=== PATIENT | female | born 1960 | race Caucasian/White ===

== ENCOUNTER 2024-04-19 08:39 | Observation (INO) ==
[2024-04-19] MEDS: BRIDION ONE (09:29)
--- NOTE | 2024-04-19 09:40 | DR.EXTPAIN ---
HPI Time seen Time Seen by Provider: 04/19/24 09:39 Complaint/Symptoms Chief Complaint:: Patient was ambulatory with crutch on wet service and it slipped causing her to fall forward. Patient has hx of CVA with right side hemiplegia. She complains of pain right ankle with movement. Her states she has been complaining pain prior to fall. She has abrasion to right flank COVID-19 Coronavirus risk:travel/contact w/high risk person: No Has patient experienced Coronavirus symptoms: No Source History Provided: Patient Mode of arrival Mode of Arrival: EMS Timing Onset of Chief Complaint: 04/19/24 PMH PMH Past Medical History: Yes Past Medical History: CVA, Diabetes, Dyslipidemia and Hypertension Past Surgical History: No Surgical History: Unknown Family History History of Family Medical Conditions: Yes Family Medical History: Cancer and Hypertension Social History Does patient currently use any type of tobacco product: No Have you used tobacco products in the last 12 months: No Type of Tobacco Use: None Does any household member use tobacco: No Alcohol Use: None Do you use any recreational Drugs:: No Lives With: Spouse Lives Where: Home Travel Risk Coronavirus risk:travel/contact w/high risk person: No Has patient experienced Coronavirus symptoms: No Infectious screening In the last 2 months have you had wt loss of >10#?: NO Have you had fever, night sweats or hemotysis?: No Have you traveled outside the country in the last 6 months?: No Isolation: Standard PE Vital Signs Vitals: Vital Signs Temperature 98.1 F Pulse Rate 66 Pulse Rate 67 Pulse Rate 65 Pulse Rate 66 Pulse Rate 64 Pulse Rate 65 Pulse Rate 64 Pulse Rate 64 Pulse Rate 64 Pulse Rate 63 Pulse Rate 62 Pulse Rate 82 Respiratory Rate 27 Respiratory Rate 24 Respiratory Rate 22 Respiratory Rate 33 Respiratory Rate 25 Respiratory Rate 21 Respiratory Rate 22 Respiratory Rate 20 Respiratory Rate 20 Respiratory Rate 17 Respiratory Rate 23 Respiratory Rate 17 Respiratory Rate 17 Blood Pressure 147/63 Blood Pressure 140/60 Blood Pressure 161/65 Blood Pressure 128/60 Blood Pressure 135/55 Blood Pressure 117/58 Blood Pressure 117/58 Blood Pressure 161/68 Blood Pressure 104/59 O2 Sat by Pulse Oximetry 100 O2 Sat by Pulse Oximetry 100 O2 Sat by Pulse Oximetry 100 O2 Sat by Pulse Oximetry 100 O2 Sat by Pulse Oximetry 100 O2 Sat by Pulse Oximetry 100 O2 Sat by Pulse Oximetry 100 O2 Sat by Pulse Oximetry 100 O2 Sat by Pulse Oximetry 100 O2 Sat by Pulse Oximetry 100 O2 Sat by Pulse Oximetry 100 O2 Sat by Pulse Oximetry 98 [facility] Reviewed 04/24/24 06:00 04/24/24 06:00 Laboratory: WBC 12.4 X10^3/uL (3.6-10.0) H 04/19/24 12:35 RBC 4.10 X10^6/uL (3.5-5.4) 04/19/24 12:35 Hgb 10.8 g/dL (12.0-16.0) L 04/19/24 12:35 Hct 33.4 % (36.0-47.0) L 04/19/24 12:35 MCV 81.4 fL (80.0-100.0) 04/19/24 12:35 MCH 26.2 pg (27.0-34.0) L 04/19/24 12:35 MCHC 32.2 g/dL (33.0-35.0) L 04/19/24 12:35 RDW 16.8 % (11.6-16.5) H 04/19/24 12:35 Plt Count 288 X10^3/uL (150.0-450.0) 04/19/24 12:35 MPV 8.4 fL (7.4-11.0) 04/19/24 12:35 Neut % (Auto) 88.0 % (42.0-75.0) H 04/19/24 12:35 Lymph % (Auto) 5.2 % (21.0-51.0) L 04/19/24 12:35 Swain % (Auto) 6.3 % (0.0-13.0) 04/19/24 12:35 Eos % (Auto) 0.1 % (0.9-2.9) L 04/19/24 12:35 Baso % (Auto) 0.4 % (0.2-1.0) 04/19/24 12:35 Neut # (Auto) 10.9 x10^3/uL (2.2-4.8) H 04/19/24 12:35 Lymph # (Auto) 0.6 X10^3/uL (1.3-2.9) L 04/19/24 12:35 Swain # (Auto) 0.8 x10^3/uL (0.3-0.8) 04/19/24 12:35 Eos # (Auto) 0.0 x10^3/uL (0.0-0.2) 04/19/24 12:35 Baso # (Auto) 0.0 X10^3/uL (0.0-0.1) 04/19/24 12:35 Absolute Nucleated RBC 0.0 /100WBC 04/19/24 12:35 Sodium 140 mmol/L (136-145) 04/19/24 12:35 Corrected Sodium 142 mmol/L (136-145) 04/19/24 12:35 Potassium 4.8 mmol/L (3.5-5.1) 04/19/24 12:35 Chloride 101 mmol/L (98-107) 04/19/24 12:35 Carbon Dioxide 28.9 mmol/L (21-32) 04/19/24 12:35 BUN 22 mg/dL (7-18) H 04/19/24 12:35 Creatinine 0.94 mg/dL (0.55-1.02) 04/19/24 12:35 Est GFR (MDRD) Af Amer > 60 (>60) 04/19/24 12:35 Est GFR (MDRD) Non-Af > 60 (>60) 04/19/24 12:35 Glucose 176 mg/dL (65-99) H 04/19/24 12:35 Hemoglobin A1c 7.2 % 04/19/24 12:55 Calcium 9.4 mg/dL (8.5-10.1) 04/19/24 12:35 Opioid Opioid Risk Tool Age (Baldemar box if 16-45): No History of Preadolescent Sexual Abuse: No Total: 0 Total Score Risk Category: Low Risk Copyright: Lawrence COSBY predicting aberrant behaviors Discharge Plan Diagnosis Discharge Problem: Fracture dislocation of right ankle, Contusion of head and neck region, Contusion of face, Cervical strain, acute, Right sided weakness Discharge Plan Patient Disposition: 09 ADMITTED INPATIENT Condition: Stable Orders to Discharge Patient Discharge Orders: Discharge (Routine); Ordered 04/23/24 Ordered By: HONEY BLACKMON
--- NOTE | 2024-04-19 09:43 | CT ---
EXAM: CT HEAD WITHOUT CONTRAST HISTORY: ambulatory with crutch on wet service and it slipped causing her to fall forward. Patient has hx of C VA with right side hemiplegia; COMPARISON: None. TECHNIQUE: Axial CT images were obtained through the brain without contrast. All CT scans at this facility use dose modulation, iterative reconstruction, and/or weight based dosi ng when appropriate to reduce radiation dose to as low as reasonably achievable. FINDINGS: BRAIN: Encephalomalacia demonstrated in the left temporal lobe. No evidence of acute intracranial he morrhage. No intra or extra-axial fluid collections CALVARIUM: Normal ADDITIONAL FINDINGS: The visualized paranasal sinuses and mastoid air cells are clear. Orbits are graeme ssly unremarkable. IMPRESSION: No acute intracranial abnormality. Previous encephalomalacia in the left temporal lobe likely from p revious infarct THIS IS AN ELECTRONICALLY VERIFIED FINAL REPORT 04/19/2024 9:38 AM - Electronically signed by Sabas Davidson MD
--- NOTE | 2024-04-19 09:43 | CT ---
EXAMINATION:CERVICAL SPINE W/O CONHISTORY:ambulatory with crutch on wet service and it slipped causing her to fall forward. Patient has hx of CVA with right side hemiplegia;COMPARISON:None.TECHNIQUE:Con tiguous noncontrast axial CT images cervical spine. Images reviewed in the axial imaging plane with reformatted sagittal and coronal images.The above CT scan was done with automated exposure control and the mA and kV was adjusted to obtain quality images according to patient size.FINDINGS:No evidence of acute traumatic displaced fracture or significant subluxation. There is straightening of the cervical spine with loss of the normal lordotic curvature. Consider muscle spasm, patient positioning. Precervical soft tissues appear normal.Multilevel degenerative changes with [id number] disc space narrowing, vertebral endplate osteophytes, narrowing of the uncovertebral joints.IMPRESSION:Diffuse cervical spondylosis.Nonspecific straightening of the cervical spine with loss of the normal lordotic curvature. Consider muscle spasm, patient positioning.THIS IS AN ELECTRONICALLY VERIFIED FINAL [id number]/19/2024 9:40 AM - Electronically signed by Marilou Laureano MD
--- NOTE | 2024-04-19 09:43 | CT ---
EXAM:CT MAXILLOFACIAL WITHOUT CONTRASTHISTORY:ambulatory with crutch on wet service and it slipped causing her to fall forward. Patient has hx of CVA with right side hemiplegia; .COMPARISON:None.TECHNIQUE:Axial CT images were obtained through the face without contrast. Orthogonal reformations were post processed.All CT scans at this facility use dose modulation, iterative reconstruction, and/or weight based dosing when appropriate to reduce radiation dose to as low as reasonably achievable.FINDINGS:FACIAL BONES: No displaced fractures.ORBITS: No evidence of orbital hematoma.PARANASAL SINUSES: Well-aerated.SOFT TISSUES: No evidence of focal soft tissue swelling.IMPRESSION:No evidence of facial fracture or orbital injuryTHIS IS AN ELECTRONICALLY VERIFIED FINAL [id number]/19/2024 9:39 AM - Electronically signed by Sabas Davidson MD
[2024-04-19] MEDS ORDERED: CARDIZEM INJ 125 MG VIAL 125 MG in NS 100 ML IV 100 ML IV PRN (09:52)
[2024-04-19] MEDS: CARDIZEM INJ 50 MG VIAL IVP ONE (09:54)
[2024-04-19] MEDS: TYLENOL 500 MG TAB EXTRA STRENGTH PO ONE (10:35)
--- NOTE | 2024-04-19 11:31 | RAD ---
EXAM:ANKLE, RIGHTHISTORY:TRAUMA;COMPARISON:None FINDINGS:Two viewsFracture/dislocation is present. This at least involves the medial malleolus and probably the lateral malleolus. I am not certain about the posterior tibial malleolus. The talus is dislocated posteriorly.Diffuse soft tissue edema is noted.IMPRESSION:1. Fracture/dislocation tibiotalar jointTHIS IS AN ELECTRONICALLY VERIFIED FINAL [id number]/19/2024 11:28 AM - Electronically signed by Sixto London MD
--- NOTE | 2024-04-19 12:29 | EKG ---
Test Reason : preop Blood Pressure : */* mmHG Vent. Rate : 64 BPM Atrial Rate : 64 BPM P-R Int : 146 ms QRS Dur : 98 ms QT Int : 432 ms P-R-T Axes : 38 82 48 degrees QTc Int : 445 ms Normal sinus rhythm Normal ECG No previous ECGs available Confirmed by Aron Jacobson MD ([id number]) on 04/19/2024 12:30:17 PM Referred By: Confirmed By: Aron Jacobson MD
[2024-04-19 12:42] LABS: BASOPHILS % (AUTO) 0.4 % (0.2-1.0); EOSINOPHILS % (AUTO) 0.1 % (0.9-2.9); HEMATOCRIT 33.4 % (36.0-47.0); HEMOGLOBIN 10.8 g/dL (12.0-16.0); LYMPHOCYTES # (AUTO) 0.6 X10^3/uL (1.3-2.9); LYMPHOCYTES % (AUTO) 5.2 % (21.0-51.0); MEAN CORPUSCULAR HEMOGLOBIN 26.2 pg (27.0-34.0); MEAN CORPUSCULAR HGB CONC 32.2 g/dL (33.0-35.0); MEAN CORPUSCULAR VOLUME 81.4 fL (80.0-100.0); MEAN PLATELET VOLUME 8.4 fL (7.4-11.0); MONOCYTES # (AUTO) 0.8 x10^3/uL (0.3-0.8); MONOCYTES % (AUTO) 6.3 % (0.0-13.0); NEUTROPHILS # (AUTO) 10.9 x10^3/uL (2.2-4.8); PLATELET COUNT 288 X10^3/uL (150.0-450.0); RED CELL DISTRIBUTION WIDTH 16.8 % (11.6-16.5); WHITE BLOOD COUNT 12.4 X10^3/uL (3.6-10.0)
--- NOTE | 2024-04-19 12:42 | CT ---
EXAM:CT right ankle without contrastHISTORY:Right ankle fractureCOMPARISON:Plain films same dateFINDINGS:Diffuse soft tissue swelling is present. There is a complex trimalleolar medial posterior fracture dislocation of the right ankle. This includes a large comminuted intra-articular fracture of the medial and posterior malleoli with 10 mm separation of the major fracture fragment. There is a dorsally angulated mildly comminuted fracture of the lateral malleolus with 11.5 mm separation of the major fracture fragments. The talus, subtalar joint and calcaneus appear intact as do the talonavicular and calcaneocuboid joints. Remainder of the tarsal bones and tarsal joints appear normal.IMPRESSION:Complex comminuted intra-articular trimalleolar fracture of the right ankle as described above with resultant posteromedial dislocation of the tibiotalar joint.THIS IS AN ELECTRONICALLY VERIFIED FINAL [id number]/19/2024 12:38 PM - Electronically signed by Curtis Pa MD
[2024-04-19 13:08] LABS: BLOOD UREA NITROGEN 22 mg/dL (7-18); CALCIUM 9.4 mg/dL (8.5-10.1); CARBON DIOXIDE 28.9 mmol/L (21-32); CHLORIDE 101 mmol/L (98-107); COR NA(FOR HYPERGLY) 142 mmol/L (136-145); CREATININE 0.94 mg/dL (0.55-1.02); GLUCOSE 176 mg/dL (65-99); POTASSIUM 4.8 mmol/L (3.5-5.1); SODIUM 140 mmol/L (136-145); eGFR NON BLACK RACES > 60 (>60)
--- NOTE | 2024-04-19 13:53 | RAD ---
EXAM:Right ankle four viewsHISTORY:Postreduction trimalleolar fracture dislocationCOMPARISON:CT right ankle same dateFINDINGS:Position and alignment of the medial, posterior, and lateral malleolar fractures is significantly improved. There is some residual posterior subluxation present. Limits than casted.IMPRESSION:Significant improvement in the position and alignment of the medial, posterior, and lateral malleolar fractures.Significant improvement in the posteromedial dislocation but with some residual posterior displacement of the talus present.THIS IS AN ELECTRONICALLY VERIFIED FINAL [id number]/19/2024 1:51 PM - Electronically signed by Curtis Pa MD
[2024-04-19] MEDS ORDERED: BENADRYL INJ 50 MG VIAL IVP PRN (16:02)
[2024-04-19] MEDS ORDERED: DILAUDID INJ IVP PRN (16:02)
[2024-04-19] MEDS ORDERED: ZOFRAN INJ 4 MG VIAL IVP PRN (16:02)
[2024-04-19] MEDS: NS 1,000 ML IV 1,000 ML ONE ×2 (16:59→18:33)
[2024-04-19] MEDS: DIPRIVAN VIAL 20 ML ONE ×2 (16:59→19:29)
[2024-04-19] MEDS: PEPCID 20 MG VIAL ONE (16:59)
[2024-04-19] MEDS: ZOFRAN INJ 4 MG VIAL ONE ×2 (16:59→20:16)
[2024-04-19] MEDS: REGLAN INJ 10 MG VIAL ONE (16:59)
[2024-04-19] MEDS: VERSED ONE ×2 (17:00→19:29)
[2024-04-19] MEDS: ANCEF VIAL 1 GRAM ONE (18:33)
[2024-04-19] MEDS: BETADINE SOLN ONE (19:13)
[2024-04-19] MEDS: NS 100 ML IV 100 ML ONE (19:26)
[2024-04-19] MEDS: FENTANYL VIAL INJ 100 mcg ONE (19:29)
[2024-04-19] MEDS: ROBINUL ONE (19:29)
[2024-04-19] MEDS ORDERED: ULTANE GAS IN ONE (19:29)
[2024-04-19] MEDS ORDERED: KETAMINE HCL ONE (19:29)
[2024-04-19] MEDS: ZEMURON 100 MG VIAL ONE (19:29)
[2024-04-19] MEDS ORDERED: XYLOCAINE 2 % (PLAIN) ONE (19:29)
[2024-04-19] MEDS: OFIRMEV IV 1000 MG VIAL 1,000 MG/100 ML VIAL IV ONE (19:29)
[2024-04-19] MEDS: DECADRON INJ ONE ×2 (19:29)
--- NOTE | 2024-04-19 19:31 | DR.CONSULT ---
CONSULT Consultation for Day of: Date: 04/19/24 Chief Complaint Chief Complaint: Broken Ankle, Right Allergies Allergies Allergy/AdvReac Type Severity Reaction Status Date / Time shrimp Allergy Uncoded 02/11/16 16:04 History of Present Illness History of Present Illness: Morbidly obese, diabetic, former smoker, with right sided deficit secondary to history of stroke and cannot communicate well. Has family with her who states she was walking down some steps and her leg gave out. They state she mostly uses the right leg as a peg. She can't move it well. Noted deformity and immediate pain. Came to ER. ER ordered xrays and CT showed trimal/pilon equivalent fracture to right side. Podiatry consulted. Past Medical History Past Medical History: CVA, Diabetes, Dyslipidemia and Hypertension Past Surgical History Surgical History: Unknown Family History Family Medical History: Diabetes Mellitus and Cancer Social History Does patient currently use any type of tobacco product: No Have you used tobacco products in the last 12 months: No Type of Tobacco Use: None Does any household member use tobacco: No Alcohol Use: None Drug Use: None Medications Home Medications: shrimp Allergy (Uncoded 02/11/16 16:04) CONTINUE taking the following medications atorvastatin 20 mg tablet 20 mg PO QPM 04/19/24 [History] lisinopril 20 mg tablet 20 mg PO QDAY 04/19/24 [History] phenytoin sodium extended 100 mg capsule 200 mg PO QDAY 04/19/24 [History] Review of Systems Musculoskeletal: Leg Pain Physical Exam Vital Signs: Vital Signs Temperature 98.1 F Temperature 97.8 F Pulse Rate [Left Radial] 78 Pulse Rate 73 Pulse Rate 65 Pulse Rate 66 Pulse Rate 67 Pulse Rate 65 Pulse Rate 66 Pulse Rate 64 Pulse Rate 65 Pulse Rate 64 Pulse Rate 64 Pulse Rate 64 Pulse Rate 63 Pulse Rate 62 Respiratory Rate 18 Respiratory Rate 22 Respiratory Rate 36 Respiratory Rate 27 Respiratory Rate 24 Respiratory Rate 22 Respiratory Rate 33 Respiratory Rate 25 Respiratory Rate 21 Respiratory Rate 22 Respiratory Rate 20 Respiratory Rate 20 Respiratory Rate 17 Respiratory Rate 23 Blood Pressure [Left Arm] 152/68 Blood Pressure 165/53 Blood Pressure 149/65 Blood Pressure 147/63 Blood Pressure 140/60 Blood Pressure 161/65 Blood Pressure 128/60 Blood Pressure 135/55 Blood Pressure 117/58 Blood Pressure 117/58 O2 Sat by Pulse Oximetry 96 O2 Sat by Pulse Oximetry 99 O2 Sat by Pulse Oximetry 100 O2 Sat by Pulse Oximetry 100 O2 Sat by Pulse Oximetry 100 O2 Sat by Pulse Oximetry 100 O2 Sat by Pulse Oximetry 100 O2 Sat by Pulse Oximetry 100 O2 Sat by Pulse Oximetry 100 O2 Sat by Pulse Oximetry 100 O2 Sat by Pulse Oximetry 100 O2 Sat by Pulse Oximetry 100 O2 Sat by Pulse Oximetry 100 O2 Sat by Pulse Oximetry 100 Cardiovascular: Other (Dopplerable PT and DP on Right. PT sounds monphasic. CFT WNL to all digits. ) Skin: Other (Lower Extremity Edema significant to right leg. No fracture blisters noted. ) Musculoskeletal: Right and Leg (Deformity present that is in varus at the ankle. Tender upon movement of ankle. Significant edema. No fracture blisters noted. ) Plan (1) Trimalleolar fracture of right ankle: Status: Acute Plan: - Reviewed Xray and CT. - Performed closed reduction and manipulation of the right ankle fracture. Obtained post reduction films which showed improved alignment. Placed patient in sugar tong splint to hold deformity. Anesthesia provided sedation. - Patient to OR tonight for external fixator application to right leg with fracture reduction. - Will be NWB to RLE. - Will need DVT Px - Will require outpatient surgery. - Admitted for observation, likely dc home tomorrow.
[2024-04-19] MEDS: MARCAINE 0.25% INJ ONE (19:56)
--- NOTE | 2024-04-19 23:34 | RAD ---
EXAM:FRONTAL VIEW CHEST X-RAYHISTORY:Preoperative chest x-ray for right ankle surgeryCOMPARISON:None.FINDINGS:The re is an opacity along the right paratracheal stripe which measures 43 x 32 mm and could represent a pulmonary mass. There is widening of the mediastinum which measures 13.5 cm. Follow-up with CT chest may be obtained if this is felt to be clinically indicated.The heart size is enlarged.The mediastinum is unremarkable.There is no evidence of pleural effusion or gross pneumothorax.The trachea is midline.IMPRESSION:1. There is an opacity along the right paratracheal stripe which measures 43 x 32 mm and could represent a pulmonary mass.2. There is widening of the mediastinum which measures 13.5 cm. Follow-up with CT chest may be obtained if this is felt to be clinically indicated.3. The heart size is enlarged.Communications: I have requested that the above concerning findings be communicated to the referring physician/clinical team by the support director at the time I signed the report. Documentation of the time in which the call support director communicated this information to the referring physician/clinical team has been detailed in the PACS system.THIS IS AN ELECTRONICALLY VERIFIED FINAL [id number]/19/2024 11:31 PM - Electronically signed by Twin May MD
[2024-04-20] MEDS: NovoLIN R (or HumuLIN R) SUBCUT PRN (05:52)
[2024-04-20 05:59] LABS: BASOPHILS % (AUTO) 0.1 % (0.2-1.0); EOSINOPHILS % (AUTO) 0.1 % (0.9-2.9); HEMATOCRIT 33.9 % (36.0-47.0); HEMOGLOBIN 10.9 g/dL (12.0-16.0); LYMPHOCYTES # (AUTO) 0.5 X10^3/uL (1.3-2.9); LYMPHOCYTES % (AUTO) 4.7 % (21.0-51.0); MEAN CORPUSCULAR HEMOGLOBIN 26.2 pg (27.0-34.0); MEAN CORPUSCULAR HGB CONC 32.2 g/dL (33.0-35.0); MEAN CORPUSCULAR VOLUME 81.4 fL (80.0-100.0); MEAN PLATELET VOLUME 8.9 fL (7.4-11.0); MONOCYTES # (AUTO) 0.5 x10^3/uL (0.3-0.8); MONOCYTES % (AUTO) 4.5 % (0.0-13.0); NEUTROPHILS # (AUTO) 9.5 x10^3/uL (2.2-4.8); NEUTROPHILS % (AUTO) 90.6 % (42.0-75.0); PLATELET COUNT 257 X10^3/uL (150.0-450.0); RED BLOOD COUNT 4.16 X10^6/uL (3.5-5.4); RED CELL DISTRIBUTION WIDTH 16.6 % (11.6-16.5); WHITE BLOOD COUNT 10.5 X10^3/uL (3.6-10.0)
[2024-04-20 06:08] LABS: ALANINE AMINOTRANSFERASE 16 Units/L (12-78); ALBUMIN 2.8 g/dL (3.4-5.0); ALKALINE PHOSPHATASE 130 Units/L (46-116); ASPARTATE AMINO TRANSFERASE 23 Units/L (15-37); BLOOD UREA NITROGEN 17 mg/dL (7-18); CALCIUM 8.8 mg/dL (8.5-10.1); CARBON DIOXIDE 27.9 mmol/L (21-32); CHLORIDE 105 mmol/L (98-107); COR CA(FOR HYPOALB) 9.8 mg/dL (8.5-10.1); COR NA(FOR HYPERGLY) 144 mmol/L (136-145); CREATININE 0.91 mg/dL (0.55-1.02); GLUCOSE 233 mg/dL (65-99); POTASSIUM 4.7 mmol/L (3.5-5.1); SODIUM 141 mmol/L (136-145); TOTAL PROTEIN 7.4 g/dL (6.4-8.2); eGFR NON BLACK RACES > 60 (>60)
[2024-04-20 06:39] LABS: BAND NEUTROPHILS % 3 % (0-10); HYPOCHROMASIA SLIGHT; PLATELET MORPHOLOGY COMMENT NORMAL (NORMAL)
[2024-04-20] MEDS: DILAUDID INJ IVP PRN (08:04)
[2024-04-20] MEDS: NYSTATIN POWDER TOP SCH (08:04)
[2024-04-20] MEDS: ZESTRIL TAB 20 MG PO SCH (09:32)
[2024-04-20] MEDS: PLAVIX PO SCH (09:32)
[2024-04-20] MEDS: GLUCOPHAGE PO SCH (09:32)
[2024-04-20] MEDS: ASPIRIN PO SCH (09:32)
[2024-04-20] MEDS: ACTOS PO SCH (09:33)
[2024-04-20] MEDS: GLUCOPHAGE ONE (10:39)
[2024-04-20] MEDS: ZESTRIL TAB 20 MG ONE (10:39)
[2024-04-20 11:24] LABS: BILIRUBIN,URINE NEGATIVE (NEGATIVE); BLOOD/HEMOGLOBIN,URINE NEGATIVE (NEGATIVE); GLUCOSE, URINE NEGATIVE (NEGATIVE); KETONES,URINE NEGATIVE (NEGATIVE); LEUKOCYTE ESTERASE ,URINE 2+ (NEGATIVE); NITRITES,URINE NEGATIVE (NEGATIVE); PROTEIN,URINE 1+ (NEGATIVE); UROBILINOGEN,URINE NORMAL (NORMAL)
[2024-04-20 11:35] LABS: APPEARANCE,URINE HAZY (CLEAR); BACTERIA,URINE TRACE /HPF (NEGATIVE); COLOR,URINE YELLOW (YELLOW); RBC,URINE 0-2 /HPF (0-3); SQUAMOUS EPITHELIAL CELL,UR RARE /HPF (NEGATIVE)
[2024-04-20] MEDS: ROCEPHIN VIAL 1 GRAM 1 G in NS 100 ML IV 100 ML IV SCH (14:23)
[2024-04-20] MEDS: PREDNISONE TAB 20 MG PO NR ×2 (17:50→23:11)
[2024-04-20] MEDS ORDERED: SNACK - Diabetic Appropriate PO SCH (20:00)
[2024-04-20] MEDS ORDERED: GLUCOPHAGE ONE (20:34)
[2024-04-20] MEDS ORDERED: DILANTIN CAP 100 MG EXT REL PO SCH (21:00)
[2024-04-20] MEDS: DILANTIN CAP 100 MG EXT REL PO SCH (21:02)
[2024-04-21] MEDS: PREDNISONE TAB 20 MG PO NR (05:28)
[2024-04-21] MEDS: BENADRYL CAP 50 MG PO NR (05:28)
[2024-04-21 05:47] LABS: BASOPHILS % (AUTO) 0.3 % (0.2-1.0); HEMATOCRIT 30.9 % (36.0-47.0); HEMOGLOBIN 9.9 g/dL (12.0-16.0); LYMPHOCYTES # (AUTO) 0.5 X10^3/uL (1.3-2.9); LYMPHOCYTES % (AUTO) 5.9 % (21.0-51.0); MEAN CORPUSCULAR HEMOGLOBIN 25.9 pg (27.0-34.0); MEAN PLATELET VOLUME 8.6 fL (7.4-11.0); MONOCYTES # (AUTO) 0.1 x10^3/uL (0.3-0.8); MONOCYTES % (AUTO) 1.7 % (0.0-13.0); NEUTROPHILS # (AUTO) 7.3 x10^3/uL (2.2-4.8); NEUTROPHILS % (AUTO) 92.1 % (42.0-75.0); PLATELET COUNT 268 X10^3/uL (150.0-450.0); RED BLOOD COUNT 3.81 X10^6/uL (3.5-5.4); RED CELL DISTRIBUTION WIDTH 16.7 % (11.6-16.5); WHITE BLOOD COUNT 7.9 X10^3/uL (3.6-10.0)
[2024-04-21 05:55] LABS: ALANINE AMINOTRANSFERASE 18 Units/L (12-78); ALBUMIN 2.6 g/dL (3.4-5.0); ALKALINE PHOSPHATASE 114 Units/L (46-116); ASPARTATE AMINO TRANSFERASE 16 Units/L (15-37); BLOOD UREA NITROGEN 18 mg/dL (7-18); CALCIUM 8.7 mg/dL (8.5-10.1); CARBON DIOXIDE 28.2 mmol/L (21-32); CHLORIDE 104 mmol/L (98-107); COR CA(FOR HYPOALB) 9.8 mg/dL (8.5-10.1); COR NA(FOR HYPERGLY) 142 mmol/L (136-145); CREATININE 0.89 mg/dL (0.55-1.02); GLUCOSE 239 mg/dL (65-99); SODIUM 139 mmol/L (136-145); TOTAL PROTEIN 6.9 g/dL (6.4-8.2); eGFR NON BLACK RACES > 60 (>60)
[2024-04-21 05:58] LABS: POTASSIUM 5.1 mmol/L (3.5-5.1)
[2024-04-21 06:07] LABS: HYPOCHROMASIA SLIGHT; PLATELET MORPHOLOGY COMMENT NORMAL (NORMAL)
--- NOTE | 2024-04-21 07:31 | RAD ---
EXAM: Left ankle three views HISTORY: Fall, left ankle pain COMPARISON: None FINDINGS: There is a vertical fracture through the medial aspect of the medial tibial metaphysis extending to the joint surface. No displacement identified. Distal fibula is intact. Tibiotalar joint is intac t. Talus, subtalar joint and calcaneus intact. IMPRESSION: Vertical fracture through the metaphysis of the medial tibia at the base of the medial malleolus ext ending onto the joint surface. THIS IS AN ELECTRONICALLY VERIFIED FINAL REPORT 04/21/2024 7:28 AM - Electronically signed by Curtis Pa MD
--- NOTE | 2024-04-21 07:32 | RAD ---
EXAM: Left knee three views HISTORY: Fall, left knee pain COMPARISON: None FINDINGS: No fracture, lytic, or blastic lesion is identified. No joint effusion or joint erosion is identif ied. No periarticular soft tissue abnormality is identified. There is degenerative medial and later al compartment narrowing present. IMPRESSION: No fracture Degenerative medial and lateral compartment narrowing THIS IS AN ELECTRONICALLY VERIFIED FINAL REPORT 04/21/2024 7:29 AM - Electronically signed by Curtis Pa MD
--- NOTE | 2024-04-21 07:54 | CT ---
EXAM: CT chest with contrast HISTORY: Abnormal chest x-ray TECHNIQUE: Axial postcontrast images with coronal and sagittal reformats. Dose reduction procedures were used w ith mA/kv adjusted for body size. Resolution is significantly limited by the patient's body habitus. COMPARISON: Chest x-ray 04/19/2024 FINDINGS: Examination of the mediastinum demonstrated no evidence for mediastinal mass, abnormal mediastinal or abnormal hilar adenopathy or significant aortic abnormality. Heart is mildly enlarged. Evaluatio n of the visualized upper abdominal organs is significantly limited due to the patient's body habitus within this limitation it appears within normal limits with the exception of cholelithiasis without evidence for cholecystitis. No definite chest wall abnormalities identified. The prominence of the right paratracheal region on the chest x-ray appears to be due to a prominent superior vena cava. No paratracheal adenopathy identified. No paratracheal or hilar mass identified. Lung gracia are jack r. IMPRESSION: Resolution is significantly limited by the patient's body habitus. No definite right paratracheal or parenchymal lung mass. The prominence in the right paratracheal re gion on the plain chest x-ray is due to a prominent superior vena cava No acute pulmonary infiltrates, significant pulmonary nodules or masses. Cholelithiasis without evidence for cholecystitis THIS IS AN ELECTRONICALLY VERIFIED FINAL REPORT 04/21/2024 7:41 AM - Electronically signed by Curtis Pa MD
[2024-04-21] MEDS ORDERED: ZESTRIL TAB 20 MG ONE (08:14)
--- NOTE | 2024-04-21 08:53 | NOTE.SOAP ---
Soap Note Note for Day of Date of Exam: 04/20/24 Subjective Data Subjective Data: Patient is accompanied by her family member at bedside. She denies any nausea, vomiting, fevers, chills, shortness of breath, or chest pain, or calf pain by waving her head and hand no. Objective Data Objective Data: Right Lower Extremity Exam: External fixator in place to right lower extremity. All pins and bars are tight. No purulence from pin sites. No signs of infection. dressing soaked, rewrapped with 4x4s and FINA. No signs or symptoms for PE or DVT. Assessment Assessment: 63 year morbidly obese, diabetic, former smoker, history of CVA with right sided deficit female POD#1 Application of external fixator for trimalleolar fracture, right leg Plan Plan: - NWB to RLE, can be WBAT to LLE. If she puts weight on rle during PT she has to be nonweight bearing bilaterally. - Pain Rx in chart. - DVT Px Rx in chart, discussed with family and nursing that if patient is already on anticoagulation medication at home she can go back on that and not use Lovenox. - Rx for Zofran. - Patient needs to follow-up with Dr. Manrique upon discharge. - They are working her up for something found on chest xray and getting CT. - Okay for discharge from Podiatry standpoint once stable by primary.
[2024-04-21] MEDS: LOVENOX INJ 40 MG SYR SC SCH (10:15)
[2024-04-21] MEDS: OMNIPAQUE 350 mg/mL 100 mL BTL 100 ML ONE (10:16)
--- NOTE | 2024-04-22 00:09 | CT ---
EXAM:CT LEFT LOWER EXTREMITY WITHOUT CONTRASTHISTORY:Ankle Fracture, Left;COMPARISON:None.TECHNIQUE:Axial images were acquired of the left lower extremity without IV contrast. Sagittal and coronal reformatted images were provided. All images were reviewed in a variety of windows and levels.RADIATION REDUCTION TECHNIQUE: Automated exposure control, Adjustment of the mA and/or kV according to patient size, or iterative reconstruction techniques were used.FINDINGS:Please note that lack of IV contrast limits evaluation of soft tissue structures and vascular detail.There is a displaced intra-articular fracture involving the medial malleolus. Loose bodies are noted in the tibiotalar syndesmosis. Abnormal widening is seen along the lateral aspect of the ankle mortise which may represent associated internal derangement. Degenerative changes are noted. Surrounding soft tissue edema is also present.IMPRESSION:1. There is a displaced intra-articular fracture involving the medial malleolus.2. Loose bodies are noted in the tibiotalar syndesmosis.3. Abnormal widening is seen along the lateral aspect of the ankle mortise which may represent associated internal derangement.THIS IS AN ELECTRONICALLY VERIFIED FINAL [id number]/2024 12:06 AM - Electronically signed by Twin May MD
[2024-04-22 06:20] LABS: MEAN CORPUSCULAR HGB CONC 32.9 g/dL (33.0-35.0); MEAN PLATELET VOLUME 8.5 fL (7.4-11.0)
[2024-04-22 06:27] LABS: BASOPHILS # (AUTO) 0.1 X10^3/uL (0.0-0.1); BASOPHILS % (AUTO) 0.6 % (0.2-1.0); EOSINOPHILS % (AUTO) 0.5 % (0.9-2.9); HEMATOCRIT 31.8 % (36.0-47.0); HEMOGLOBIN 10.5 g/dL (12.0-16.0); LYMPHOCYTES # (AUTO) 1.8 X10^3/uL (1.3-2.9); LYMPHOCYTES % (AUTO) 18.7 % (21.0-51.0); MEAN CORPUSCULAR HEMOGLOBIN 26.7 pg (27.0-34.0); MEAN CORPUSCULAR VOLUME 81.2 fL (80.0-100.0); MONOCYTES # (AUTO) 0.6 x10^3/uL (0.3-0.8); MONOCYTES % (AUTO) 6.4 % (0.0-13.0); NEUTROPHILS # (AUTO) 7.2 x10^3/uL (2.2-4.8); NEUTROPHILS % (AUTO) 73.8 % (42.0-75.0); PLATELET COUNT 302 X10^3/uL (150.0-450.0); RED BLOOD COUNT 3.92 X10^6/uL (3.5-5.4); RED CELL DISTRIBUTION WIDTH 16.7 % (11.6-16.5); WHITE BLOOD COUNT 9.7 X10^3/uL (3.6-10.0)
[2024-04-22 06:48] LABS: ALANINE AMINOTRANSFERASE 21 Units/L (12-78); ALBUMIN 2.8 g/dL (3.4-5.0); ALKALINE PHOSPHATASE 111 Units/L (46-116); ASPARTATE AMINO TRANSFERASE 18 Units/L (15-37); BLOOD UREA NITROGEN 21 mg/dL (7-18); CALCIUM 8.8 mg/dL (8.5-10.1); CARBON DIOXIDE 31.5 mmol/L (21-32); CHLORIDE 102 mmol/L (98-107); COR CA(FOR HYPOALB) 9.8 mg/dL (8.5-10.1); COR NA(FOR HYPERGLY) 142 mmol/L (136-145); CREATININE 0.91 mg/dL (0.55-1.02); GLUCOSE 155 mg/dL (65-99); POTASSIUM 4.1 mmol/L (3.5-5.1); SODIUM 141 mmol/L (136-145); TOTAL PROTEIN 7.1 g/dL (6.4-8.2); eGFR NON BLACK RACES > 60 (>60)
[2024-04-22 07:42] VITALS: BMI 67.1
[2024-04-22] MEDS ORDERED: ZESTRIL TAB 20 MG ONE (08:13)
--- NOTE | 2024-04-22 17:56 | NOTE.SOAP ---
Soap Note Note for Day of Date of Exam: 04/22/24 Subjective Data Subjective Data: Received page from nurse about possible fracture on left ankle. Reviewed radiographs and CT both demonstrate a sheer type fracture of the medial malleolus on the left ankle. Communicated with the patient and her family member that the fracture requires fixation. Objective Data Objective Data: Left Lower Extremity Exam: No significant swelling. No fracture blisters noted. No real pain per patient. No underlying deformity. Discussed radiographs and CT and showed area of fracture on patient with her and her family member. Assessment Assessment: 63 year old morbidly obese patient who previously underwent ex fix for trimal on RLE and now has vertical medial mal fracture on left Plan Plan: Discussed with patient that she has a sheer fracture of the left ankle which is unstable for full weight bearing and she has external fixator on the right side side due to displaced ankle fracture and signifcant swelling. Therefore the left ankle fracture needs to be stabilized with plate fixation. Bull suarez has signifcant comorbidites but the need for ambulation for transfer is necessary due to her size and comorbidities. Patient and fmaily member understand the risks of surgery and are willing to proceed. NPO order placed. Hold DVT Px and can restart POD#1. Surgery in am.
[2024-04-22] MEDS: HIBICLENS WASH EXT ONE (23:05)
[2024-04-23 06:29] LABS: BASOPHILS % (AUTO) 0.4 % (0.2-1.0); EOSINOPHILS # (AUTO) 0.2 x10^3/uL (0.0-0.2); EOSINOPHILS % (AUTO) 2.6 % (0.9-2.9); HEMATOCRIT 31.9 % (36.0-47.0); HEMOGLOBIN 10.2 g/dL (12.0-16.0); LYMPHOCYTES # (AUTO) 1.5 X10^3/uL (1.3-2.9); LYMPHOCYTES % (AUTO) 19.7 % (21.0-51.0); MEAN CORPUSCULAR HEMOGLOBIN 25.9 pg (27.0-34.0); MEAN CORPUSCULAR HGB CONC 31.8 g/dL (33.0-35.0); MEAN CORPUSCULAR VOLUME 81.3 fL (80.0-100.0); MEAN PLATELET VOLUME 8.5 fL (7.4-11.0); MONOCYTES # (AUTO) 0.5 x10^3/uL (0.3-0.8); MONOCYTES % (AUTO) 6.9 % (0.0-13.0); NEUTROPHILS # (AUTO) 5.3 x10^3/uL (2.2-4.8); NEUTROPHILS % (AUTO) 70.4 % (42.0-75.0); PLATELET COUNT 325 X10^3/uL (150.0-450.0); RED BLOOD COUNT 3.93 X10^6/uL (3.5-5.4); RED CELL DISTRIBUTION WIDTH 16.7 % (11.6-16.5); WHITE BLOOD COUNT 7.6 X10^3/uL (3.6-10.0)
[2024-04-23 06:58] LABS: ALANINE AMINOTRANSFERASE 22 Units/L (12-78); ALBUMIN 2.8 g/dL (3.4-5.0); ALKALINE PHOSPHATASE 117 Units/L (46-116); ASPARTATE AMINO TRANSFERASE 18 Units/L (15-37); BLOOD UREA NITROGEN 20 mg/dL (7-18); CARBON DIOXIDE 29.1 mmol/L (21-32); CHLORIDE 102 mmol/L (98-107); COR NA(FOR HYPERGLY) 140 mmol/L (136-145); CREATININE 0.88 mg/dL (0.55-1.02); GLUCOSE 136 mg/dL (65-99); POTASSIUM 4.3 mmol/L (3.5-5.1); SODIUM 139 mmol/L (136-145); eGFR NON BLACK RACES > 60 (>60)
[2024-04-23] MEDS: NS 1,000 ML IV 1,000 ML ONE (08:58)
[2024-04-23] MEDS: DIPRIVAN VIAL 20 ML ONE (09:28)
[2024-04-23] MEDS: BRIDION ONE (09:28)
[2024-04-23] MEDS: ZEMURON 100 MG VIAL ONE (09:29)
[2024-04-23] MEDS: REGLAN INJ 10 MG VIAL ONE (09:29)
[2024-04-23] MEDS: PEPCID 20 MG VIAL ONE (09:29)
[2024-04-23] MEDS: ZOFRAN INJ 4 MG VIAL ONE (09:29)
[2024-04-23] MEDS: ROBINUL ONE (09:29)
[2024-04-23] MEDS: VERSED ONE (09:33)
[2024-04-23] MEDS: FENTANYL VIAL INJ 100 mcg ONE ×2 (09:33→11:11)
[2024-04-23] MEDS ORDERED: XYLOCAINE 2 % (PLAIN) ONE (09:46)
[2024-04-23] MEDS: ANCEF VIAL 1 GRAM ONE (09:46)
[2024-04-23] MEDS ORDERED: KETAMINE HCL ONE (09:46)
[2024-04-23] MEDS ORDERED: ULTANE GAS IN ONE (09:46)
[2024-04-23] MEDS: NS 100 ML IV 100 ML ONE (09:46)
[2024-04-23] MEDS: NEO-SYNEPHRINE INJ ONE (10:09)
[2024-04-23] MEDS: MARCAINE 0.25% INJ ONE (10:16)
[2024-04-23] MEDS ORDERED: ZOFRAN INJ 4 MG VIAL IVP PRN (11:01)
[2024-04-23] MEDS ORDERED: DILAUDID INJ IVP PRN (11:01)
[2024-04-23] MEDS: ZESTRIL TAB 20 MG ONE (12:45)
[2024-04-23] MEDS: NEOSPORIN OINT ONE (13:10)
[2024-04-23] MEDS ORDERED: NORCO 5/325 MG TAB ONE (16:23)
[2024-04-23] MEDS: NORCO 5/325 MG TAB PO PRN (16:39)
[2024-04-23] MEDS ORDERED: GLUCOPHAGE ONE (20:05)
[2024-04-24 06:39] LABS: BASOPHILS % (AUTO) 0.4 % (0.2-1.0); EOSINOPHILS # (AUTO) 0.1 x10^3/uL (0.0-0.2); HEMOGLOBIN 9.9 g/dL (12.0-16.0); LYMPHOCYTES % (AUTO) 13.4 % (21.0-51.0); MEAN CORPUSCULAR HEMOGLOBIN 26.6 pg (27.0-34.0); MEAN CORPUSCULAR HGB CONC 32.8 g/dL (33.0-35.0); MEAN CORPUSCULAR VOLUME 81.2 fL (80.0-100.0); MEAN PLATELET VOLUME 8.2 fL (7.4-11.0); MONOCYTES # (AUTO) 0.6 x10^3/uL (0.3-0.8); MONOCYTES % (AUTO) 8.4 % (0.0-13.0); NEUTROPHILS # (AUTO) 5.5 x10^3/uL (2.2-4.8); NEUTROPHILS % (AUTO) 76.8 % (42.0-75.0); PLATELET COUNT 267 X10^3/uL (150.0-450.0); RED CELL DISTRIBUTION WIDTH 16.4 % (11.6-16.5); WHITE BLOOD COUNT 7.2 X10^3/uL (3.6-10.0)
[2024-04-24 06:52] LABS: ALANINE AMINOTRANSFERASE 18 Units/L (12-78); ALBUMIN 2.3 g/dL (3.4-5.0); ALKALINE PHOSPHATASE 104 Units/L (46-116); ASPARTATE AMINO TRANSFERASE 15 Units/L (15-37); BLOOD UREA NITROGEN 11 mg/dL (7-18); CALCIUM 8.3 mg/dL (8.5-10.1); CARBON DIOXIDE 30.4 mmol/L (21-32); CHLORIDE 103 mmol/L (98-107); COR CA(FOR HYPOALB) 9.7 mg/dL (8.5-10.1); COR NA(FOR HYPERGLY) 141 mmol/L (136-145); CREATININE 0.86 mg/dL (0.55-1.02); GLUCOSE 169 mg/dL (65-99); POTASSIUM 4.5 mmol/L (3.5-5.1); SODIUM 139 mmol/L (136-145); TOTAL PROTEIN 6.3 g/dL (6.4-8.2); eGFR NON BLACK RACES > 60 (>60)
--- NOTE | 2024-04-24 08:02 | NOTE.SOAP ---
Soap Note Note for Day of Date of Exam: 04/24/24 Subjective Data Subjective Data: Patient is POD#1 ORIF Left Ankle Fracture and POD#5 External Fixator Application for Unstable Right Ankle Fracture. Denies any nasuea, vomiting, fever, chills, shortness of breath, or chest pain. Patient is tough to communicate with as her only response is "wee" but she uses hand gestures and head nods to confirm. Objective Data Objective Data: Right Lower Extremity: Dressing intact. CFT WNL to all digits. No erythema or purulence around the pin and wire sites. Frame tight. Dressing not soaked. Left Lower Extremity: Surgical incision is well coapted. Swelling normal for post-operative state. No hematoma noted under incision. Tender along incision and posterior calf, believe the posterior calf is from the boot. No signs or symptoms concerning for DVT or PE. Assessment Assessment: POD#1 ORIF Left Ankle Fracture and POD#5 External Fixator Application for Unstable Right Ankle Fracture Plan Plan: - NWB to RLE - Rx for Pain medication in chart. - Rx for Lovenox in chart. - Weight bearing for transfers to left lower extremity only, MUST BE IN CAM BOOT during transfers. She had a sheer fracture which is unstable for full weight bearing and has an ex-fix on the right side due to an unstable ankle fracture hence the left side needed to be stabilized with a plate. Has significant comorbidities but the need for ambulation for transfer is a medically necessary. - Patient is awaiting pre-cert for snf. Likely be here over the weekend. - Okay for discharge from Podiatry standpoint. - Patient will need to follow-up with Dr. Manrique's office within 1 week of discha rgalmita.
[2024-04-24] MEDS ORDERED: GLUCOPHAGE ONE ×2 (08:14→21:06)
[2024-04-24] MEDS ORDERED: ZESTRIL TAB 20 MG ONE (08:14)
--- NOTE | 2024-04-24 09:03 | RAD ---
EXAM:Left ankle three viewsHISTORY:ORIF painCOMPARISON:CT 04/21/2024, left ankle 04/20/2024FINDINGS:Surgical screw-plate fixation is now present at the distal tibia/medial malleolus with anatomic position of the medial malleolus fragment. The joint is symmetric. The superior surgical screw in the tibial metaphysis penetrates the lateral cortex of the metaphysis.IMPRESSION:Interval ORIF of medial malleolus fracture. See above.THIS IS AN ELECTRONICALLY VERIFIED FINAL [id number]/2024 9:00 AM - Electronically signed by Erick Mcfarland MD
[2024-04-24] MEDS: COLACE CAP 100 MG PO PRN (21:15)
[2024-04-24] MEDS: MILK OF MAGNESIA PO PRN (21:15)
[2024-04-25 06:22] LABS: BASOPHILS % (AUTO) 0.6 % (0.2-1.0); EOSINOPHILS # (AUTO) 0.2 x10^3/uL (0.0-0.2); EOSINOPHILS % (AUTO) 2.2 % (0.9-2.9); HEMATOCRIT 27.3 % (36.0-47.0); LYMPHOCYTES # (AUTO) 0.9 X10^3/uL (1.3-2.9); MEAN CORPUSCULAR HEMOGLOBIN 26.7 pg (27.0-34.0); MEAN CORPUSCULAR HGB CONC 32.8 g/dL (33.0-35.0); MEAN CORPUSCULAR VOLUME 81.3 fL (80.0-100.0); MEAN PLATELET VOLUME 8.3 fL (7.4-11.0); MONOCYTES # (AUTO) 0.6 x10^3/uL (0.3-0.8); MONOCYTES % (AUTO) 8.6 % (0.0-13.0); NEUTROPHILS # (AUTO) 5.6 x10^3/uL (2.2-4.8); NEUTROPHILS % (AUTO) 76.6 % (42.0-75.0); PLATELET COUNT 239 X10^3/uL (150.0-450.0); RED BLOOD COUNT 3.37 X10^6/uL (3.5-5.4); WHITE BLOOD COUNT 7.3 X10^3/uL (3.6-10.0)
[2024-04-25 06:42] LABS: ALANINE AMINOTRANSFERASE 17 Units/L (12-78); ALKALINE PHOSPHATASE 95 Units/L (46-116); ASPARTATE AMINO TRANSFERASE 16 Units/L (15-37); BLOOD UREA NITROGEN 9 mg/dL (7-18); CALCIUM 8.4 mg/dL (8.5-10.1); CARBON DIOXIDE 33.2 mmol/L (21-32); CHLORIDE 104 mmol/L (98-107); COR NA(FOR HYPERGLY) 140 mmol/L (136-145); CREATININE 0.74 mg/dL (0.55-1.02); GLUCOSE 156 mg/dL (65-99); POTASSIUM 4.6 mmol/L (3.5-5.1); SODIUM 139 mmol/L (136-145); TOTAL PROTEIN 6.1 g/dL (6.4-8.2); eGFR NON BLACK RACES > 60 (>60)
[2024-04-25] MEDS ORDERED: GLUCOPHAGE ONE ×2 (09:31→20:06)
[2024-04-25] MEDS ORDERED: ZESTRIL TAB 20 MG ONE (09:31)
[2024-04-25] MEDS: NS 250 ML IV 250 ML IV ONE (10:01)
[2024-04-25] MEDS: LINZESS PO ONE (10:43)
[2024-04-26 03:33] VITALS: O2SAT 97
[2024-04-26 06:02] LABS: BASOPHILS % (AUTO) 0.5 % (0.2-1.0); EOSINOPHILS # (AUTO) 0.1 x10^3/uL (0.0-0.2); EOSINOPHILS % (AUTO) 1.7 % (0.9-2.9); HEMATOCRIT 26.9 % (36.0-47.0); LYMPHOCYTES # (AUTO) 0.8 X10^3/uL (1.3-2.9); MEAN CORPUSCULAR HEMOGLOBIN 26.8 pg (27.0-34.0); MEAN CORPUSCULAR HGB CONC 33.4 g/dL (33.0-35.0); MEAN CORPUSCULAR VOLUME 80.3 fL (80.0-100.0); MEAN PLATELET VOLUME 8.2 fL (7.4-11.0); MONOCYTES # (AUTO) 0.6 x10^3/uL (0.3-0.8); MONOCYTES % (AUTO) 7.2 % (0.0-13.0); NEUTROPHILS # (AUTO) 6.5 x10^3/uL (2.2-4.8); NEUTROPHILS % (AUTO) 80.6 % (42.0-75.0); PLATELET COUNT 303 X10^3/uL (150.0-450.0); RED BLOOD COUNT 3.35 X10^6/uL (3.5-5.4); RED CELL DISTRIBUTION WIDTH 16.6 % (11.6-16.5)
[2024-04-26 06:16] LABS: ALANINE AMINOTRANSFERASE 17 Units/L (12-78); ALBUMIN 2.1 g/dL (3.4-5.0); ALKALINE PHOSPHATASE 93 Units/L (46-116); ASPARTATE AMINO TRANSFERASE 15 Units/L (15-37); BLOOD UREA NITROGEN 10 mg/dL (7-18); CALCIUM 8.6 mg/dL (8.5-10.1); CARBON DIOXIDE 32.6 mmol/L (21-32); CHLORIDE 103 mmol/L (98-107); COR CA(FOR HYPOALB) 10.1 mg/dL (8.5-10.1); COR NA(FOR HYPERGLY) 141 mmol/L (136-145); CREATININE 0.78 mg/dL (0.55-1.02); GLUCOSE 159 mg/dL (65-99); POTASSIUM 4.7 mmol/L (3.5-5.1); SODIUM 140 mmol/L (136-145); TOTAL PROTEIN 6.2 g/dL (6.4-8.2); eGFR NON BLACK RACES > 60 (>60)
[2024-04-26 08:24] VITALS: PULSE 83; RESP 20; TEMP 98.3
[2024-04-26] MEDS ORDERED: ZESTRIL TAB 20 MG ONE (08:57)
[2024-04-26] MEDS ORDERED: LINZESS PO SCH (09:00)
[2024-04-26 09:25] VITALS: BP 135/65
[2024-04-26] MEDS: GLUCOPHAGE ONE (09:25)
== END 2024-04-26 14:17 ==
LOC: MED/SURG 08:39 → ER 08:39 → MED/SURG 16:17
PROVIDERS: ADMIT Obstetrics & Gynecology Obstetrics; ATTEND Obstetrics & Gynecology Obstetrics
PROC: APEXFIX (2024-04-19 16:15)
DX: S93.04XA Dislocation of right ankle joint, initial encounter; Z01.810 Encounter for preprocedural cardiovascular examination; Y92.098 Other place in other non-institutional residence as the place of occurrence of the external cause; E11.65 Type 2 diabetes mellitus with hyperglycemia; S82.852A Displaced trimalleolar fracture of left lower leg, initial encounter for closed fracture; R26.89 Other abnormalities of gait and mobility; S31.113A Laceration without foreign body of abdominal wall, right lower quadrant without penetration into peritoneal cavity, initial encounter; I69.398 Other sequelae of cerebral infarction; N39.0 Urinary tract infection, site not specified; E66.01 Morbid (severe) obesity due to excess calories; Z68.44 Body mass index [BMI] 60.0-69.9, adult; E78.5 Hyperlipidemia, unspecified; S51.012A Laceration without foreign body of left elbow, initial encounter; I10 Essential (primary) hypertension; W01.0XXA Fall on same level from slipping, tripping and stumbling without subsequent striking against object, initial encounter